=== PATIENT | female | born 1935 | race Caucasian/White ===

== ENCOUNTER → 2017-05-18 | Outpatient (CLI) | payer OTHER, MEDICARE ==
[~2017-05-18] MED LIST: AMARYL4 MG PO; COUMADIN 2.5MG2.5 M1 PO; COUMADIN 5 MG TA5 M1 PO; COZAAR 50 MG TA50 M1 PO; FISH OIL 1,0001 EAC5 PO; LANOXIN 0.250.25 MG PO; NORCO 5-325 TA1 EACH PO; OXYCODONE HCL 55 MG PO; SYNTHROID100 MCG PO
== END ==
LOC: M.ULTRA 10:29
DX: G45.9 Transient cerebral ischemic attack, unspecified (principal); R09.89 Other specified symptoms and signs involving the circulatory and respiratory systems; Q24.9 Congenital malformation of heart, unspecified

== ENCOUNTER → 2018-01-09 | Outpatient (CLI) | payer OTHER, MEDICARE | LOC: M.ULTRA 16:30 | DX: M79.661 Pain in right lower leg (principal); M79.89 Other specified soft tissue disorders ==

== ENCOUNTER → 2020-04-23 | Outpatient (CLI) | payer OTHER, MEDICARE | LOC: M.RAD 04-21 13:06 | PROVIDERS: ATTEND Family Medicine | DX: Z12.31 Encounter for screening mammogram for malignant neoplasm of breast (principal); M81.0 Age-related osteoporosis without current pathological fracture; M85.88 Other specified disorders of bone density and structure, other site ==